=== PATIENT | female | born 1995 | race African-American/Black ===

== ENCOUNTER 2017-06-11 23:00 | Emergency (ER) | payer MEDICAID ==
[~2017-06-11] VITALS: Ht 188 cm; Wt 81.6 kg
[2017-06-11 23:10] VITALS: BP 118/64
[2017-06-12] VITALS (10 sets, daily range): BP systolic 95–122; BP diastolic 42–70
[2017-06-12 00:02] LABS: APPEARANCE,URINE CLEAR; BILIRUBIN, URINE NEGATIVE (NEGATIVE); GLUCOSE, URINE (UA) NEGATIVE (NEGATIVE); KETONES,URINE 2+ (NEGATIVE); LEUKOCYTE ESTERASE ,URINE 1+ (NEGATIVE); NITRITE,URINE NEGATIVE (NEGATIVE); PH,URINE 7 (4.5-8.0); PROTEIN,URINE 2+ (NEGATIVE); UROBILINOGEN,URINE 1 MG/DL (0.0-1.0)
[2017-06-12 00:07] LABS: ANION GAP 9 mmol/L (5-15); BLOOD UREA NITROGEN 16 mg/dL (7-18); CARBON DIOXIDE 26 MMOL/L (21-32); CHLORIDE 104 MMOL/L (98-107); CREATININE 0.8 MG/DL (0.55-1.30); POTASSIUM 4.3 MMOL/L (3.5-5.1); SODIUM 139 MMOL/L (136-145)
[2017-06-12 00:07] LABS: COLOR,URINE YELLOW
[2017-06-12 00:12] LABS: BASOPHILS % (AUTO) 2.2 % (0.0-2.0); EOSINOPHILS % (AUTO) 4.2 % (0.0-3.0); HEMATOCRIT 35.5 % (37.0-47.0); HEMOGLOBIN 12.8 G/DL (12.0-16.0); MEAN CORPUSCULAR VOLUME 95 FL (80-99); MONOCYTES % (AUTO) 9.3 % (1.0-10.0); NEUTROPHILS % (AUTO) 31.3 % (45.0-75.0); PLATELET COUNT 284 K/UL (150-450); RED BLOOD COUNT 3.75 M/UL (4.20-5.40); RED CELL DISTRIBUTION WIDTH 10.5 % (11.6-14.8); WHITE BLOOD COUNT 4.4 K/UL (4.8-10.8)
[2017-06-12 00:15] LABS: ALKALINE PHOSPHATASE 84 U/L (46-116); BILIRUBIN,TOTAL 0.2 MG/DL (0.2-1.0); CREATINE KINASE 239 U/L (26-308)
[2017-06-12] MEDS ORDERED: Mylanta II UD 30ml ORAL ONE (01:30)
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
[2017-06-12] MEDS ORDERED: RISPERDAL1 MG/1 ML PO (02:48)
[2017-06-12] MEDS ORDERED: INVEGA1.5 MG PO (02:48)
[2017-06-12] MEDS ORDERED: DEPAKOTE125 MG PO (02:48)
[2017-06-12 07:09] LABS: ALANINE AMINOTRANSFERASE 23 U/L (12-78); ALBUMIN 3.7 G/DL (3.4-5.0); ASPARTATE AMINO TRANSFERASE 18 U/L (15-37)
[2017-06-12 07:11] LABS: ALBUMIN/GLOBULIN RATIO 0.8 (1.0-2.7)
--- NOTE | 2017-06-15 15:16 | Cardiology Report ---
APPROVED REPORT EKG Measurement Heart [id number] Normal sinus rhythm Normal ECG
== END 2017-06-12 16:24 | disposition home or self-care (01) ==
LOC: EDBD 23:00 → EMR 23:00
DX: R07.9 Chest pain, unspecified (principal); F20.0 Paranoid schizophrenia; Z79.899 Other long term (current) drug therapy
CPT/HCPCS: 36415; 80053; 80164; 80307; 80329; 81003; 81025; 82550; 85025; 93005; 99282